=== PATIENT | male | born 1980 | race Caucasian/White ===

== ENCOUNTER 2016-12-02 19:08 | Emergency (ER) | payer OTHER ==
[~2016-12-02] VITALS: Ht 182.9 cm; Wt 77.0 kg
[2016-12-02] MEDS ORDERED: SODIUM CHLORIDE 0.9% 1,000 ML IV ONE (19:23)
[2016-12-02] MEDS ORDERED: SODIUM CHLORIDE FLUSH 10ML SYR IVF ONE (19:30)
[2016-12-02] MEDS ORDERED: MORPHINE SULFATE 4 MG/ML, 1ML IVPush PRN (19:30)
[2016-12-02] MEDS ORDERED: OMNIPAQUE 350 MG/ML, 100ML BOTTLE ONE (20:00)
[2016-12-02 20:19] LABS: ASPARTATE AMINO TRANSFERASE 64 U/L (15-37); BLOOD UREA NITROGEN 16 mg/dL (7-18)
[2016-12-02 21:01] VITALS: BP 119/71
== END 2016-12-02 21:18 | disposition short-term general hospital (02) ==
LOC: ED 21:07
DX: S12.300A Unspecified displaced fracture of fourth cervical vertebra, initial encounter for closed fracture (principal); S12.500A Unspecified displaced fracture of sixth cervical vertebra, initial encounter for closed fracture; S27.339A Laceration of lung, unspecified, initial encounter; J93.9 Pneumothorax, unspecified; W17.89XA Other fall from one level to another, initial encounter; Y93.89 Activity, other specified; Y92.89 Other specified places as the place of occurrence of the external cause; Y99.8 Other external cause status
CPT/HCPCS: 36415; 70450; 71260; 72125; 74177; 80053; 85025; 85610; 93005; 96360; 99291; J7030; Q9967

== ENCOUNTER → 2017-02-20 | Outpatient (CLI) | payer OTHER | END | disposition home or self-care (01) | LOC: CFH 08:21 | PROVIDERS: ATTEND Neurological Surgery | DX: S12.490D Other displaced fracture of fifth cervical vertebra, subsequent encounter for fracture with routine healing (principal); S12.600D Unspecified displaced fracture of seventh cervical vertebra, subsequent encounter for fracture with routine healing; X58.XXXD Exposure to other specified factors, subsequent encounter | CPT/HCPCS: 72125 ==